=== PATIENT | male | born 1975 | race Caucasian/White ===

== ENCOUNTER 2021-11-05 13:15 | Day surgery (SDC) | payer OTHER ==
[2021-11-05 14:35] VITALS: BMI 24.3
[2021-11-05 15:19] LABS: BASO % 0.5 % (0-2.0); EOS % 0.1 % (0-4.5); HEMATOCRIT 40.8 % (35.4-49); HEMOGLOBIN 13.6 GM/dL (11.7-16.9); LYMPH % 19.1 % (8-40); MCH 25.5 pg (25.7-33.7); MCHC 33.3 g/dl (32.0-35.9); MEAN CELL VOLUME 76.5 fl (80-96); MEAN PLT VOLUME 9.1 fl (7.5-11.1); MONO % 6.2 % (3.8-10.2); NEUT % 74.1 % (42.8-82.8); PLATELET COUNT 298 10^3/uL (134-434); RBC 5.32 M/mm3 (4.00-5.60); RDW 14.9 % (11.9-15.9); WHITE BLOOD COUNT 8.3 K/mm3 (4.0-10.0)
[2021-11-05 15:27] LABS: INR 1.1 (0.83-1.09); PROTHROMBIN TIME (PATIENT) 12.7 SEC (9.7-13.0)
[2021-11-05 15:30] LABS: ACTIVATED PTT 34.3 SECONDS (25.2-36.5)
[2021-11-05] MEDS ORDERED: LIDOCAINE HCL/PF 2% SDV 5ML VIAL ONE (15:40)
[2021-11-05] MEDS ORDERED: DEXAMETHASONE SOD PHOSPHATE 4 MG/1 ML VIAL ONE (15:40)
[2021-11-05] MEDS ORDERED: PROPOFOL 20 ML ONE ×2 (15:40→17:06)
[2021-11-05] MEDS ORDERED: MIDAZOLAM HCL 2 MG/2 ML SINGLE DOSE VIAL ONE (15:40)
[2021-11-05 15:48] LABS: CALCIUM 9.6 mg/dL (8.5-10.1)
[2021-11-05 15:49] LABS: ALBUMIN 4.4 g/dl (3.4-5.0); BLOOD UREA NITROGEN 12.5 mg/dL (7-18)
[2021-11-05 15:53] LABS: BILIRUBIN,TOTAL 0.4 mg/dL (0.2-1)
[2021-11-05 15:54] LABS: TOT PROT 8.2 g/dl (6.4-8.2)
[2021-11-05] MEDS ORDERED: ceFAZolin SODIUM 1 GM VIAL IVPB ONE (17:05)
[2021-11-05] MEDS ORDERED: ONDANSETRON 4 MG/2 ML VIAL IVPUSH PRN (17:11)
[2021-11-05] MEDS ORDERED: oxyCODONE HCL 5 MG TABLET PO PRN ×2 (17:11)
[2021-11-05] MEDS ORDERED: LACTATED RINGERS SOLUTION 1,000 ML IV SCH (17:15)
[2021-11-05] MEDS ORDERED: LIDOCAINE HCL 2% JELLY 10 ML CARTRIDGE TP ONE (17:30)
[2021-11-05] MEDS ORDERED: LIDOCAINE HCL 2% JELLY 10 ML CARTRIDGE ONE (17:36)
[2021-11-05] MEDS ORDERED: FENTANYL CITRATE/PF 50 MCG/ML VIAL ONE ×2 (17:59→18:17)
[2021-11-05 23:18] VITALS: TEMP 97.9
[2021-11-06 06:52] VITALS: BP 122/74; PULSE 100
== END 2021-11-06 11:00 | disposition home or self-care (01) ==
LOC: JOR 13:15 → JASUSAT 14:49 → J5S 20:19 → JASUSAT 11-06 11:00
PROVIDERS: ATTEND Urology
PROC: 3E033GC Introduction of Other Therapeutic Substance into Peripheral Vein, Percutaneous Approach (ICD-10-PCS; principal; 2021-11-05 16:30)
DX: R31.9 Hematuria, unspecified (principal)
CPT/HCPCS: 36415; 71045-TC-FY; 80053; 85025; 85610; 85730; 86850; 86900; 86901; 87086; 93005; 93010; 94760; 99285-25; C9803-CS; U0003; U0005